=== PATIENT | male | born 1970 | race Caucasian/White ===

== ENCOUNTER → 2017-10-24 | Emergency (ER) | payer MEDICAID ==
[~2017-10-24] VITALS: Ht 177.8 cm; Wt 84.1 kg
[~2017-10-24] MED LIST: ACET1TAB12 PO; BUPIVAcaine/PF 2.5 mg/ml (0.25%) 30ml vial IJ ONE; CLIN-80 PO; DOXY100C2 PO; HYDR-3965 PO; HYDR-565 PO; IBUP-1984 PO; NO HOME MEDS; TETanus/Pertussis (Acell)/Diphther VAC/PF (Tdap-Adult) 0.5ml syringe IM ONE
[2017-10-24 12:31] VITALS: BP 140/82
== END | disposition home or self-care (01) ==
LOC: ER 10:02
DX: L02.512 Cutaneous abscess of left hand (principal); F15.10 Other stimulant abuse, uncomplicated; I10 Essential (primary) hypertension
CPT/HCPCS: 26010; 87070; 87077; 87186; 90471; 90715; 99284; A6266; A6449; J3490

== ENCOUNTER 2017-12-31 09:39 | Emergency (ER) | payer MEDICAID ==
[~2017-12-31] VITALS: Ht 177.8 cm; Wt 66.0 kg
[~2017-12-31 09:39] MED LIST changes: -BUPIVAcaine/PF 2.5 mg/ml (0.25%) 30ml vial IJ ONE; -DOXY100C2 PO; -HYDR-3965 PO; -HYDR-565 PO; -IBUP-1984 PO; -TETanus/Pertussis (Acell)/Diphther VAC/PF (Tdap-Adult) 0.5ml syringe IM ONE
[2017-12-31 09:43] VITALS: BP 144/91
[2017-12-31] MEDS ORDERED: LIDOcaine 1.5% w/epinephrine 1:200,000 5ml ampul IJ ONE (10:00)
== END 2017-12-31 10:40 | disposition home or self-care (01) ==
LOC: ER 09:40
DX: S01.81XA Laceration without foreign body of other part of head, initial encounter (principal); F15.10 Other stimulant abuse, uncomplicated; I10 Essential (primary) hypertension; W50.0XXA Accidental hit or strike by another person, initial encounter; Y93.89 Activity, other specified; Y92.89 Other specified places as the place of occurrence of the external cause; Y99.8 Other external cause status
CPT/HCPCS: 12011; 99283; J3490; A6449

== ENCOUNTER 2018-01-24 10:42 | Emergency (ER) | payer MEDICAID, OTHER ==
[~2018-01-24] VITALS: Ht 177.8 cm; Wt 80.0 kg
[~2018-01-24 10:42] MED LIST changes: -CLIN-80 PO; +CLIN300C85 PO
[2018-01-24] MEDS ORDERED: proMETHazine 6.25 mg/5 ml UD oral syrup PO ONE (11:00)
[2018-01-24] MEDS ORDERED: normal saline 1000ML IV soln IVB ONE (11:00)
[2018-01-24 11:20] LABS: BASOPHILS % (AUTO) 0.4 % (0-1); EOSINOPHILS # (AUTO) 0.2 X10'3 (0-0.9); EOSINOPHILS % (AUTO) 1.6 % (0-6); HEMATOCRIT 37.2 % (42.0-52.0); HEMOGLOBIN 12.9 g/dl (14.0-17.9); LYMPHOCYTES # (AUTO) 1.6 X10'3 (1.1-4.8); MEAN CORPUSCULAR HEMOGLOBIN 30.7 PG (27.0-31.0); MEAN CORPUSCULAR HGB CONC 34.5 % (33.0-36.5); MEAN PLATELET VOLUME 7.7 FL (7.4-10.4); MONOCYTES # (AUTO) 0.8 X10'3 (0-0.9); MONOCYTES % (AUTO) 6.9 % (2-12); NEUTROPHILS # (AUTO) 8.3 X10'3 (1.8-7.7); NEUTROPHILS % (AUTO) 76.1 % (42-75); PLATELET COUNT 315 X10'3 (140-440); RED BLOOD COUNT 4.18 X10'6 (4.70-6.10); RED CELL DISTRIBUTION WIDTH 14.4 % (11.5-14.5); WHITE BLOOD COUNT 10.9 X10'3 (4.5-11.0)
[2018-01-24 11:36] LABS: ALANINE AMINOTRANSFERASE 14 U/L (12-78); ALBUMIN 3.1 G/DL (3.4-5.0); ALBUMIN/GLOBULIN RATIO 0.8 (1.1-1.5); ALKALINE PHOSPHATASE 74 IU/L (46-116); ANION GAP 9 (8-16); ASPARTATE AMINO TRANSFERASE 13 U/L (10-37); BILIRUBIN,TOTAL 0.5 MG/DL (0.1-1.0); BLOOD UREA NITROGEN 21 MG/DL (7-18); BUN/CREATININE RATIO 20.6 (5.4-32.0); CALCIUM 8.4 MG/DL (8.5-10.1); CHLORIDE 109 MMOL/L (99-107); CREATININE 1.02 MG/DL (0.60-1.10); GLUCOSE 160 MG/DL (70-104); POTASSIUM 3.8 MMOL/L (3.5-5.1); SODIUM 142 MMOL/L (135-145); TOTAL CARBON DIOXIDE 24.5 MMOL/L (24-32); TOTAL PROTEIN 7.1 G/DL (6.4-8.2); eGFR 78 ML/MIN
[2018-01-24 11:39] LABS: LIPASE 788 U/L (73-393); TROPONIN I < 0.04 NG/ML (0.0-0.05)
[2018-01-24] MEDS ORDERED: ONDA4TAB6 PO (13:26)
[2018-01-24] MEDS ORDERED: DIPH25CA83 PO (13:26)
[2018-01-24 13:31] VITALS: BP 122/69
== END 2018-01-24 13:40 | disposition home or self-care (01) ==
LOC: ER 10:42
DX: F11.23 Opioid dependence with withdrawal (principal); R11.2 Nausea with vomiting, unspecified; F15.10 Other stimulant abuse, uncomplicated; I10 Essential (primary) hypertension; Z88.1 Allergy status to other antibiotic agents; Z56.0 Unemployment, unspecified
CPT/HCPCS: 36415; 80053; 83690; 84484; 85025; 93005; 96360; 99285; J7030; Q0169

== ENCOUNTER 2023-09-26 23:40 | Emergency (ER) | payer SELFPAY ==
[~2023-09-26] VITALS: Ht 177.8 cm; Wt 91.0 kg
[~2023-09-26 23:40] MED LIST changes: -ACET1TAB12 PO; -CLIN300C85 PO; +DIPH25CA83 PO; +ONDA4TAB6 PO
[2023-09-27] MEDS ORDERED: normal saline 1000ML IV soln IVB ONE (00:05)
[2023-09-27] MEDS ORDERED: CefTRIAXone/D5W-Rocephin 1gm 50 ML IV ONE (00:05)
[2023-09-27 01:11] LABS: BASOPHILS # (AUTO) 0.1 X10'3 (0-0.2); BASOPHILS % (AUTO) 0.4 % (0-1); EOSINOPHILS # (AUTO) 0.3 X10'3 (0-0.9); EOSINOPHILS % (AUTO) 1.9 % (0-6); HEMATOCRIT 38.8 % (42.0-52.0); LYMPHOCYTES # (AUTO) 2.5 X10'3 (1.1-4.8); MEAN CORPUSCULAR HEMOGLOBIN 30.7 PG (27.0-31.0); MEAN CORPUSCULAR HGB CONC 33.6 g/dL (33.0-36.5); MEAN CORPUSCULAR VOLUME 91.2 FL (78-98); MEAN PLATELET VOLUME 7.2 FL (7.4-10.4); MONOCYTES # (AUTO) 1.7 X10'3 (0-0.9); MONOCYTES % (AUTO) 9.7 % (2-12); PLATELET COUNT 300 X10'3 (140-440); RED BLOOD COUNT 4.25 X10'6 (4.70-6.10); RED CELL DISTRIBUTION WIDTH 13.8 % (11.5-14.5); WHITE BLOOD COUNT 17.5 X10'3 (4.5-11.0)
[2023-09-27 01:31] LABS: ALBUMIN 3.1 G/DL (3.4-5.0); ANION GAP 5 (8-16); BLOOD UREA NITROGEN 23 MG/DL (7-18); BUN/CREATININE RATIO 19.7 (10.0-20.0); CALCIUM 8.9 MG/DL (8.5-10.1); CHLORIDE 100 MMOL/L (99-107); CREATININE 1.17 MG/DL (0.60-1.10); GLUCOSE 127 MG/DL (70-104); MAGNESIUM 1.8 MG/DL (1.5-2.4); SODIUM 134 MMOL/L (135-145); TOTAL CARBON DIOXIDE 28.7 MMOL/L (24-32); eCRCL 75 ML/MIN; eGFR 65 ML/MIN
[2023-09-27] MEDS ORDERED: SULF1TAB49 PO (03:05)
[2023-09-27] MEDS ORDERED: CEPH-585 PO (03:05)
[2023-09-27 06:56] VITALS: BP 107/66; PULSE 78; RESP 16; TEMP 98; O2SAT 98
== END 2023-09-27 04:40 | disposition home or self-care (01) ==
LOC: ER 23:41
DX: L03.116 Cellulitis of left lower limb (principal)
CPT/HCPCS: 36415; 80048; 83605; 83735; 84145; 85025; 87040; 93971; 96374; 99285; J0696; J7030

== ENCOUNTER 2024-02-19 22:35 | Emergency (ER) | payer OTHER ==
[~2024-02-19] VITALS: Ht 167.6 cm; Wt 68.6 kg
[~2024-02-19 22:35] MED LIST changes: +CEPH-585 PO
[2024-02-19] MEDS ORDERED: CEPH-585 PO (22:57)
[2024-02-19] MEDS ORDERED: SULF1TAB49 PO (22:57)
[2024-02-19] MEDS ORDERED: NAPR-56 PO (22:57)
[2024-02-19 23:01] VITALS: BP 134/78; PULSE 84; RESP 18; TEMP 98; O2SAT 98
== END 2024-02-19 23:05 | disposition home or self-care (01) ==
LOC: ER 22:35
DX: L03.211 Cellulitis of face (principal); I10 Essential (primary) hypertension; F15.90 Other stimulant use, unspecified, uncomplicated; F11.90 Opioid use, unspecified, uncomplicated; F19.90 Other psychoactive substance use, unspecified, uncomplicated; Z56.0 Unemployment, unspecified; Z88.1 Allergy status to other antibiotic agents; Z79.2 Long term (current) use of antibiotics; Z79.899 Other long term (current) drug therapy
CPT/HCPCS: 99283